=== PATIENT | female | born 2005 | race Caucasian/White ===

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

== ENCOUNTER → 2024-04-05 | Outpatient (CLI) | payer OTHER, SELFPAY ==
[2024-04-05 16:55] LABS: Absolute Lymphocyte Count 2.82 X10^3/uL (0.83-4.51); Absolute Neutrophil Count 4.4 X10^3/uL (2.0-7.7); Basophil# 0.04 X10^3/uL; Basophil% 0.5 % (0-1); Eosinophil# 0.07 X10^3/uL; Eosinophils% 0.9 % (0-5); Hematocrit 42.3 % (37-47); Hemoglobin 13.1 g/dL (12.0-15.0); Lymphocyte # 2.82 X10^3/ul (0.83-4.51); Lymphocyte % 35.8 % (19-41); Mean Corpuscular Hgb 24.5 pg (27.0-32.0); Mean Corpuscular Volume 79.2 fL (81-99); Mean Platelet Vol. 10.5 fl (6.2-12.0); Monocyte# 0.57 X10^3/uL; Monocyte% 7.2 % (0-10); NRBC Flagged by Analyzer 0 % (0-5); Neutrophil # 4.35 X10^3/uL (2.7-7.7); Neutrophil % 55.3 % (47-70); Platelet Count 324 K/mm3 (150-450); RBC Distribution Width CV 15.7 % (11.6-14.6); RBC Distribution Width SD 44.6 fl (35.1-43.9); Red Blood Count 5.34 M/mm3 (4.2-5.4); White Blood Count 7.9 K/mm3 (4.4-11.0)
[2024-04-05 17:06] LABS: Vitamin D,25 Hydroxy 12.6 ng/mL
[2024-04-05 17:09] LABS: Ferritin 13 ng/mL (8-252); Iron 33 ug/dL (50-170); Iron Binding Capacity,Total 426 ug/dL (250-450)
== END | disposition home or self-care (01) ==
LOC: BIMLAB 15:13
PROVIDERS: PCP Internal Medicine; Referring Provider Nurse Practitioner; Visit Provider Nurse Practitioner
DX: E55.9 Vitamin D deficiency, unspecified (principal); D50.9 Iron deficiency anemia, unspecified
CPT/HCPCS: 36415; 82306; 82728; 83540; 83550; 85025

== ENCOUNTER → 2024-11-19 | Outpatient (CLI) | payer OTHER, SELFPAY ==
[2024-11-19 15:40] LABS: Absolute Lymphocyte Count 2.59 X10^3/uL (0.83-4.51); Absolute Neutrophil Count 6.1 X10^3/uL (2.0-7.7); Basophil# 0.06 X10^3/uL; Basophil% 0.6 % (0-1); Eosinophil# 0.12 X10^3/uL; Eosinophils% 1.3 % (0-5); Hematocrit 43.2 % (37-47); Hemoglobin 13.6 g/dL (12.0-15.0); Lymphocyte # 2.59 X10^3/ul (0.83-4.51); Mean Corp Hgb Conc 31.5 g/dL (32-36); Mean Corpuscular Hgb 26.5 pg (27.0-32.0); Mean Platelet Vol. 11.1 fl (6.2-12.0); Monocyte# 0.65 X10^3/uL; Monocyte% 6.8 % (0-10); NRBC Flagged by Analyzer 0 % (0-5); Neutrophil # 6.14 X10^3/uL (2.7-7.7); Platelet Count 340 K/mm3 (150-450); RBC Distribution Width CV 13.4 % (11.6-14.6); Red Blood Count 5.14 M/mm3 (4.2-5.4); White Blood Count 9.6 K/mm3 (4.4-11.0)
[2024-11-19 21:45] LABS: AST(SGOT) 24 U/L (<=31); Alanine Aminotransfer ALT/SGPT 32 U/L (<=34); Albumin, Serum 3.7 g/dL (3.5-5.0); Alkaline Phosphatase 58 U/L (35-104); Anion Gap 11 (5-15); BUN 7 mg/dL (4-19); BUN/Creat Ratio 11.4 RATIO (10-20); Calcium 9.2 mg/dL (7.6-11.0); Carbon Dioxide 18.5 mmol/L (22.0-29.0); Chloride 108 mmol/L (96-108); Creatinine, Serum 0.59 mg/dL (0.70-1.20); EST Glomerular Filtration Rate 133 (>60); Globulin 3.8 g/dL (2.2-4.2); Glucose 84 mg/dL (70-99); Iron 24 ug/dL (50-170); Iron Binding Capacity,Total 407 ug/dL (250-450); Iron Binding Capacity,Unsat 383 ug/dL (228-428); Potassium 4.3 mmol/L (3.3-5.1); Protein, Total 7.5 g/dL (5.9-8.4); Sodium Level 138 mmol/L (133-145); Total Bilirubin 0.24 mg/dL (0.00-1.30); Vitamin D,25 Hydroxy 6.1 ng/mL (30-100)
== END | disposition home or self-care (01) ==
LOC: BIMLAB 11:08
PROVIDERS: PCP Internal Medicine; Visit Provider Internal Medicine
DX: E66.9 Obesity, unspecified (principal); E55.9 Vitamin D deficiency, unspecified; D50.9 Iron deficiency anemia, unspecified
CPT/HCPCS: 36415; 80053; 82306; 83540; 83550; 84443; 85025

== ENCOUNTER → 2025-03-29 | Outpatient (CLI) | payer OTHER, SELFPAY ==
--- OUTSIDE RECORDS SUMMARY | 2025-03-29 08:36 | XMS RPT_ITS | CCD ---
Author Organization [facility] Care Team Providers Care Marketing Strategy Analyst Name Role Phone Dr. Chen Mohan Primary Care Provider Dr. Chen Mohan Referring Provider [phone] KATIA Pena Attending Provider [phone] Chen Mohan Primary Care Unavailable Ingrid Pena Attending Unavailable Chen Mohan Referring Unavailable Chen Mohan Primary Care Unavailable Chen Mohan Attending Unavailable Chen Mohan Primary Care Unavailable Ingrid Pena Referring Unavailable Ingrid Pena Attending Unavailable Chen Mohan Primary Care Unavailable Chen Mohan Referring Unavailable Chen Mohan Attending Unavailable Dr. Chen Mohan MD Primary Care Provider [phone] Dr. Chen Mohan MD Attending Provider Marques RUANO, Dr. Siddiqui Referring Provider Allergies Allergy Classification Reported Allergen(s) Allergy Type Date of Onset Reaction(s) Facility (2 sources) Amoxicillin Drug Allergy 11-22-2023 [facility] (1 source) Amoxicillin Drug Allergy 11-19-2024 [facility] Repository Medications Current Medications Medication Drug Class(es) Dates Sig (Normalized) Sig (Original) cholecalciferol 1.25 mg oral capsule (1 source) Vitamin D Start: 11-19-2024 take 1 capsule by mouth every week Cholecalciferol (Vitamin D3) 1,250 mcg (50,000 unit) capsule Active 1250 ug PO EVERY WEEK November 19, 2024 1:00am L Norgest/E.Estradiol-E .Estrad (6 sources) Progestin, Estrogen, Progestin-contain ing Intrauterine Device Start: 09-14-2024 take 1 tablet by mouth once daily L Norgest/E.Estradiol- E.Estrad 0.15 mg-30 mcg (84)/10 mcg (7) tablets,dose pack,3 month Active 0 PO .COMPLEX September 14, 2024 1:02pm take 1 tablet daily following the order on blister card(s) PO Start: 06-22-2024 End: 09-14-2024 take 1 tablet by mouth once daily L Norgest/E.Estradiol-E.Estrad 0.15 mg-3 0 mcg (84)/10 mcg (7) tablets,dose pack,3 month Discontinued 0 PO .COMPLEX June 22, 2024 3:23pm September 14, 2024 1:03pm take 1 tablet daily following the order on blister card(s) PO Start: 11-22-2023 End: 06-22-2024 take 1 tablet by mouth once daily L Norgest/E.Estradiol-E.Estrad 0.15 mg-3 0 mcg (84)/10 mcg (7) tablets,dose pack,3 month Discontinued 0 PO .COMPLEX November 22, 2023 2:09pm June 22, 2024 3:23pm take 1 tablet daily following the order on blister card(s) PO Start: 11-22-2023 take 1 tablet by susannah th once daily L Norgest/E.Estradiol-E.Estrad Active 0 PO .COMPLEX November 22, 2023 1:09pm take 1 tablet daily following the order on blister card(s) PO Start: 05-02-2023 End: 11-22-2023 take 1 tablet by mouth once daily L Norgest/E.Estradiol-E.Estrad (Seasoniq ue) 0.15 mg-30 mcg (84)/10 mcg (7) tablets,dose pack,3 month Discontinued 0 PO .COMPLEX May 02, 2023 12:00am November 22, 2023 2:09pm take 1 tablet daily following the order on blister card(s) PO Start: 05-02-2023 End: 11-22-2023 take 1 tablet by mouth once daily L Norgest/E.Estradiol-E.Estrad (Seasoniq ue) 0.15 mg-30 mcg (84)/10 mcg (7) tablets,dose pack,3 month Discontinued 0 PO .COMPLEX 182 May 01, 2023 11:00pm November 22, 2023 1:09pm take 1 tablet daily following the order on blister card(s) PO ferrous sulfate 325 mg oral tablet (2 sources) Start: 11-24-2023 take 1 tablet by mouth every other day Ferrous Sulfate 325 mg (65 mg iron) tablet Active 325 mg PO every other day 60 November 24, 2023 1:00am naproxen 500 mg oral tablet (2 sources) Nonsteroidal Anti-inflammatory Drug Start: 04-19-2023 take 1 tablet by mouth twice daily as needed for pain Naproxen 500 mg tablet Active 500 mg PO TWICE A DAY as needed for pain April 19, 2023 12:00am Problems Problem Classification Problem Date Documented Da te Episodic/Chronic Administrative/social admission (2 sources) Patient encounter status; Translations: [Encounter for pre-employment examination] 04-18-2023 Episodic Deficiency and other anemia (3 sources) Iron deficiency anemia; Translations: [Iron deficiency anemia, unspecified] 11-22-2023 Episodic Deficiency and other anemia (2 sources) Iron deficiency anemia, unspecified; Translations: [Iron deficiency anemia, unspecified] Onset: 11-19-2024 11-22-2023 Episodic Headache; including migraine (3 sources) Migraine with aura, not intractable, without status migrainosus; Translations: [Migraine] Onset: 04-17-2024 04-05-2024 Chronic Headache; including migraine (3 sources) Intermittent headache; Translations: [Intermittent headache] 11-22-2023 Episodic Menstrual disorders (5 sources) Irregular periods; Translations: [Irregular menstruation, unspecified] Onset: 04-17-2024 11-22-2023 Chronic Nutritional deficiencies (5 sources) Vitamin D deficiency; Translations: [Vitamin D deficiency, unspecified] Onset: 11-19-2024 11-22-2023 Chronic Other non-traumatic joint disorders (1 source) Pain in right knee; Translations: [Bilateral knee pain] 11-19-2024 Episodic Other nutritional; endocrine; and metabolic disorders (1 source) Obesity, unspecified; Translations: [Obesity, unspecified] Onset: 11-29-2024 Chronic Other nutritional; endocrine; and metabolic disorders (2 sources) Body mass index 30+ - obesity; Translations: [Obesity, unspecified] 04-05-2024 Chronic Residual codes; unclassified (1 source) Influenza vaccination declined; Translations: [Immunization not carried out because of patient refusal] 11-19-2024 Episodic Results Test Name Value Interpretation Reference Range Facility Absolute neutrophil countOrd ered By: Chen Mohan on 11-19-2024 Neutrophils (Bld) [#/Vol] 6.1 10*3/uL 2.0-7.7 [facility] BUN/creatinine ratioOrdered By: Chen Mohan on 11-19-2024 Urea nitrogen/Creatinine [Mass ratio] 11.4 mg/mg 10-20 [facility] Basophil percentageOrdered B y: Chen Mohan on 11-19-2024 Basophils/100 WBC (Bld) 0.6 % 0-1 [facility] Bilirubin, totalOrdered By: Chen Mohan on 11-19-2024 Bilirubin [Mass/Vol] 0.24 mg/dL 0.00-1.30 [facility] CBC W/Diff, Automatedon Absolute Lymph 2.59 X10 3/uL Normal 0.83-4.51 [facility] Comment on above: Performed By: #### L 500.4050, L100.0100, L503.6030, L506.1001, L501.9520 #### [facility] [address] [place], [address] Absolute Neut 6.1 X10 3/uL Normal 2.0-7.7 [facility] Comment on above: Performed By: #### L 500.4050, L100.0100, L503.6030, L506.1001, L501.9520 #### [facility] [address] [place], [address] Basophils/100 WBC (Bld) 0.6 % Normal 0-1 [facility] Comment on above: Performed By: #### L 500.4050, L100.0100, L503.6030, L506.1001, [id number] #### [facility] [address] [place], [address] Eosinophils/100 WBC (Bld) 1.3 % Normal 0-5 [facility] Comment on above: Performed By: #### L 500.4050, L100.0100, L503.6030, L506.1001, [id number] #### [facility] [address] [place], [address] Erythrocyte distribution width (RBC) [Ratio] 13.4 % Normal 11.6-14.6 [facility] Comment on above: Performed By: #### L 500.4050, L100.0100, L503.6030, L506.1001, L501.9520 #### [facility] [address] [place], [address] Hematocrit (Bld) [Volume fraction] 43.2 % Normal 37-47 [facility] Comment on above: Performed By: #### L 500.4050, L100.0100, L503.6030, L506.1001, L501.9520 #### [facility] [address] [place], [address] Hemoglobin (Bld) [Mass/Vol] 13.6 g/dL Normal 12.0-15.0 [facility] Comment on above: Performed By: #### L 500.4050, L100.0100, L503.6030, L506.1001, L501.9520 #### [facility] [address] [place], [address] IG% 0.300 Normal 0.0-0.9 [facility] Comment on above: Result Comment: IG% - Immature Granulocytes (promyelocytes, myelocytes and metamyelocytes) > 1% indicates that a LEFT SHIFT is Present. Performed By: #### L 500.4050, L100.0100, L503.6030, L506.1001, L501.9520 #### [facility] [address] [place], [address] Lymphocytes/100 WBC (Bld) 27.0 % Normal 19-41 [facility] Comment on above: Performed By: #### L 500.4050, L100.0100, L503.6030, L506.1001, [id number] #### [facility] [address] [place], [address] MCH (RBC) [Entitic mass] 26.5 pg Low 27.0-32.0 [facility] Comment on above: Performed By: #### L 500.4050, L100.0100, L503.6030, L506.1001, L501.9520 #### [facility] [address] [place], [address] MCHC (RBC) [Mass/Vol] 31.5 g/dL Low 32-36 [facility] Comment on above: Performed By: #### L 500.4050, L100.0100, L503.6030, L506.1001, L501.9520 #### [facility] [address] [place], [address] MCV (RBC) [Entitic vol] 84.0 fL Normal 81-99 [facility] Comment on above: Performed By: #### L 500.4050, L100.0100, L503.6030, L506.1001, L501.9520 #### [facility] [address] [place], [address] Monocytes/100 WBC (Bld) 6.8 % Normal 0-10 [facility] Comment on above: Performed By: #### L 500.4050, L100.0100, L503.6030, L506.1001, L501.9520 #### [facility] [address] [place], [address] Neutrophils/100 WBC (Bld) 64.0 % Normal 47-70 [facility] Comment on above: Performed By: #### L 500.4050, L100.0100, L503.6030, L506.1001, L501.9520 #### [facility] [address] [place], [address] Nucleated RBC (Bld) [#/Vol] 0 10*3/uL Normal 0-5 [facility] Comment on above: Performed By: #### L 500.4050, L100.0100, L503.6030, L506.1001, L501.9520 #### [facility] [address] [place], [address] Platelet mean volume (Bld) [Entitic vol] 11.1 fL Normal 6.2-12.0 [facility] Comment on above: Performed By: #### L 500.4050, L100.0100, L503.6030, L506.1001, L501.9520 #### [facility] [address] [place], [address] Platelets (Bld) [#/Vol] 340 10*3/uL Normal 150-450 [facility] Comment on above: Performed By: #### L 500.4050, L100.0100, L503.6030, L506.1001, L501.9520 #### [facility] [address] [place], [address] RBC (Bld) [#/Vol] 5.14 10*6/uL Normal 4.2-5.4 [facility] Comment on above: Performed By: #### L 500.4050, L100.0100, L503.6030, L506.1001, L501.9520 #### [facility] [address] [place], [address] RDW SD 41.0 fl Normal 35.1-43.9 [facility] Comment on above: Performed By: #### L 500.4050, L100.0100, L503.6030, L506.1001, L501.9520 #### [facility] [address] [place], [address] WBC (Bld) [#/Vol] 9.6 10*3/uL Normal 4.4-11.0 [facility] Comment on above: Performed By: #### L 500.4050, L100.0100, L503.6030, L506.1001, L501.9520 #### [facility] [address] [place], [address] Calculated total iron bindin g capacityOrdered By: Chen Mohan on 11-19-2024 Total Iron Binding Capacity 407 ug/dL 250-450 [facility] Carbon dioxide measurementOr dered By: Chen Mohan on 11-19-2024 CO2 [Moles/Vol] 18.5 mmol/L Low 22.0-29.0 [facility] Chloride measurementOrdered By: Chen Mohan on 11-19-2024 Chloride [Moles/Vol] 108 mmol/L 96-108 [facility] Comprehensive Metabolic Prof ilon 11-19-2024 Albumin [Mass/Vol] 3.7 g/dL Normal 3.5-5.0 [facility] Comment on above: Performed By: #### L 500.4050, L100.0100, L503.6030, L506.1001, L501.9520 #### [facility] [address] [place], [address] Albumin/Globulin [Mass ratio] 1.0 {ratio} Normal 0.9-2.4 [facility] Comment on above: Performed By: #### L 500.4050, L100.0100, L503.6030, L506.1001, L501.9520 #### [facility] [address] [place], [address] ALK PHOS 58 U/L Normal 35-104 [facility] Comment on above: Performed By: #### L 500.4050, L100.0100, L503.6030, L506.1001, L501.9520 #### [facility] [address] [place], [address] ALT [Catalytic activity/Vol] 32 U/L Normal <=34 [facility] Comment on above: Performed By: #### L 500.4050, L100.0100, L503.6030, L506.1001, L501.9520 #### [facility] [address] [place], [address] Anion gap [Moles/Vol] 11 mmol/L Normal 5-15 [facility] Comment on above: Performed By: #### L 500.4050, L100.0100, L503.6030, L506.1001, L501.9520 #### [facility] [address] [place], [address] AST [Catalytic activity/Vol] 24 U/L Normal <=31 [facility] Comment on above: Performed By: #### L 500.4050, L100.0100, L503.6030, L506.1001, L501.9520 #### [facility] [address] [place] [place], [address] Bilirubin [Mass/Vol] 0.24 mg/dL Normal 0.00-1.30 [facility] Comment on above: Performed By: #### L 500.4050, L100.0100, L503.6030, L506.1001, L501.9520 #### [facility] [address] [place], [address] BUN/CRE 11.4 RATIO Normal 10-20 [facility] Comment on above: Performed By: #### L 500.4050, L100.0100, L503.6030, L506.1001, L501.9520 #### [facility] [address] [place], [address] Calcium [Mass/Vol] 9.2 mg/dL Normal 7.6-11.0 [facility] Comment on above: Performed By: #### L 500.4050, L100.0100, L503.6030, L506.1001, L501.9520 #### [facility] [address] [place], [address] Chloride [Moles/Vol] 108 mmol/L Normal 96-108 [facility] Comment on above: Performed By: #### L 500.4050, L100.0100, L503.6030, L506.1001, L501.9520 #### [facility] [address] [place], [address] CO2 [Moles/Vol] 18.5 mmol/L Low 22.0-29.0 [facility] Comment on above: Performed By: #### L 500.4050, L100.0100, L503.6030, L506.1001, L501.9520 #### [facility] [address] [place], [address] Creatinine [Mass/Vol] 0.59 mg/dL Low 0.70-1.20 [facility] Comment on above: Performed By: #### L 500.4050, L100.0100, L503.6030, L506.1001, L501.9520 #### [facility] [address] [place], [address] GFR/1.73 sq M.predicted among non-blacks MDRD (S/P/Bld) [Vol rate/Area] 133 mL/min/{1.73_m2} Normal >60 [facility] Comment on above: Result Comment: mL/m in/1.73m2 CKD-EPI Creatinine Equation (2020) Performed By: #### L 500.4050, L100.0100, L503.6030, L506.1001, L501.9520 #### [facility] [address] [place], [address] Globulin (S) [Mass/Vol] 3.8 g/dL Normal 2.2-4.2 [facility] Comment on above: Performed By: #### L 500.4050, L100.0100, L503.6030, L506.1001, L501.9520 #### [facility] [address] [place], [address] Glucose [Mass/Vol] 84 mg/dL Normal 70-99 [facility] Comment on above: Performed By: #### L 500.4050, L100.0100, L503.6030, L506.1001, L501.9520 #### [facility] [address] [place], [address] Potassium [Moles/Vol] 4.3 mmol/L Normal 3.3-5.1 [facility] Comment on above: Performed By: #### L 500.4050, L100.0100, L503.6030, L506.1001, L501.9520 #### [facility] [address] [place], [address] Sodium [Moles/Vol] 138 mmol/L Normal 133-145 [facility] Comment on above: Performed By: #### L 500.4050, L100.0100, L503.6030, L506.1001, L501.9520 #### [facility] [address] [place], [address] T PROT 7.5 g/dL Normal 5.9-8.4 [facility] Comment on above: Performed By: #### L 500.4050, L100.0100, L503.6030, L506.1001, L501.9520 #### [facility] [address] [place], [place], [address] Urea nitrogen [Mass/Vol] 7 mg/dL Normal 4-19 [facility] Comment on above: Performed By: #### L 500.4050, L100.0100, L503.6030, L506.1001, L501.9532 #### [facility] [address] [place], [address] Eosinophil percentageOrdered By: Chen Mohan on 11-19-2024 Eosinophils/100 WBC (Bld) 1.3 % 0-5 [facility] Erythrocyte distribution wid th ratioOrdered By: Chen Mohan on 11-19-2024 Erythrocyte distribution width (RBC) [Ratio] 13.4 % 11.6-14.6 [facility] Erythrocyte distribution wid th standard deviationOrdered By: Chen Mohan on 11-19-2024 Erythrocyte distribution width (RBC) [Entitic vol] 41.0 fL 35.1-43.9 [facility] GFR/1.73 sq M.predicted tobias g non-blacks MDRD (S/P/Bld) [Vol rate/Area]Ordered By: Chen Mohan on 11-19-2024 Estimated GFR (MDRD) Non-Af Amer 133 >60 [facility] Comment on above: mL/min/1.73m2 CKD-EP I Creatinine Equation (2020) Hematocrit Auto (Bld) [Volum e fraction]Ordered By: Chen Mohan on 11-19-2024 Hematocrit (Bld) [Volume fraction] 43.2 % 37-47 [facility] Hemoglobin measurementOrdere d By: Chen Mohan on 11-19-2024 Hemoglobin (Bld) [Mass/Vol] 13.6 g/dL 12.0-15.0 [facility] Immature granulocytes/100 WB C Auto (Bld)Ordered By: Chen Mohan on 11-19-2024 Immature granulocytes/100 WBC (Bld) 0.300 % 0.0-0.9 [facility] Comment on above: IG% - Immature Granu locytes (promyelocytes, myelocytes and metamyelocytes) > 1% indicates that a LEFT SHIFT is Present. Iron (Unsp spec) [Mass/Mass] Ordered By: Chen Mohan on 11-19-2024 Iron [Mass/Vol] 24 ug/dL Low 50-170 [facility] Iron saturation [Mass fracti on]Ordered By: Chen Crumlay on 11-19-2024 Iron Saturation 6.0 % Low 15.0-55.0 [facility] Iron+Iron Binding Capacityon 11-19-2024 Iron [Mass/Vol] 24 ug/dL Low 50-170 [facility] Comment on above: Performed By: #### L 100.0100, L503.6150, L503.6075, L506.1000, L503.6550 #### [facility] [address] [place] [place], [address] IRON SATURATION 6.0 Low 15.0-55.0 [facility] Comment on above: Performed By: #### L 100.0100, L503.6150, L503.6075, L506.1000, L503.6550 #### [facility] [address] [place] [place], [address] TIBC 407 ug/dL Normal 250-450 [facility] Comment on above: Performed By: #### L 100.0100, L503.6150, L503.6075, L506.1000, L503.6550 #### [facility] [address] [place] [place], [address] UIBC 383 ug/dL Normal 228-428 [facility] Comment on above: Performed By: #### L 100.0100, L503.6150, L503.6075, L506.1000, L503.6550 #### [facility] [address] [place] [place], [address] L506.1001on 11-19-2024 Vitamin D 25-OH 6.1 ng/mL Low 30-100 [facility] Comment on above: Result Comment: Mai min D Status Deficiency: <20 ng/mL (50nmol/L) Insufficiency: 20-30 ng/mL (50-75 nmol/L) Sufficiency: 30-100 ng/mL (75-250 nmol/L) Toxicity: >100 ng/mL (>250 nmol/L) Performed By: #### L 100.0100, L503.6150, L503.6075, L506.1000, L503.6550 #### [facility] [address] [place], [address] Laboratory - Chemistry and C hemistry - challengeOrdered By: Chen Mohan on 11-19-2024 AST [Catalytic activity/Vol] 24 U/L <32 [facility] Lymphocytes Auto (Unsp spec) [#/Vol]Ordered By: Chen Mohan on 11-19-2024 Lymphocytes (Bld) [#/Vol] 2.59 10*3/uL 0.83-4.51 [facility] Lymphocytes/100 WBC Auto (Un sp spec)Ordered By: Chen Mohan on 11-19-2024 Lymphocytes/100 WBC (Bld) 27.0 % 19-41 [facility] MCV (mean corpuscular volume ) determinationOrdered By: Chen Mohan on 11-19-2024 MCV (RBC) [Entitic vol] 84.0 fL 81-99 [facility] Mean corpuscular hemoglobin (MCH) determinationOrdered By: Chen Mohan on 11-19-2024 MCH (RBC) [Entitic mass] 26.5 pg Low 27.0-32.0 [facility] Mean corpuscular hemoglobin concentration (MCHC) determinationOrdered By: Chen Mohan on 11-19-2024 MCHC (RBC) [Mass/Vol] 31.5 g/dL Low 32-36 [facility] Mean platelet volume determi nationOrdered By: Chen Mohan on 11-19-2024 Platelet mean volume (Bld) [Entitic vol] 11.1 fL 6.2-12.0 [facility] Monocyte percentageOrdered B y: Chen Mohan on 11-19-2024 Monocytes/100 WBC (Bld) 6.8 % 0-10 [facility] Neutrophil percentageOrdered By: Chen Mohan on 11-19-2024 Neutrophils/100 WBC (Bld) 64.0 % 47-70 [facility] No Panel InformationOrdered By: Chen Mohan on 11-19-2024 Unsaturated Iron Binding Capacity 383 ug/dL 228-428 [facility] Nucleated red blood cell per centageOrdered By: Chen Mohan on 11-19-2024 Nucleated RBC/100 WBC (Bld) [Ratio] 0 % 0-5 [facility] Platelet countOrdered By: Pete Mohan on 11-19-2024 Platelets (Bld) [#/Vol] 340 10*3/uL 150-450 [facility] RBC Auto (Bld) [#/Vol]Ordere d By: Chen Mohan on 11-19-2024 RBC (Bld) [#/Vol] 5.14 10*6/uL 4.2-5.4 [facility] Serum creatinine measurement (mass/volume)Ordered By: Chen Mohan on 11-19-2024 Creatinine [Mass/Vol] 0.59 mg/dL Low 0.70-1.20 [facility] Serum globulin measurementOr dered By: Chen Mohan on 11-19-2024 Globulin (S) [Mass/Vol] 3.8 g/dL 2.2-4.2 [facility] Serum glucose measurement (m ass/volume)Ordered By: Chen Mohan on 11-19-2024 Glucose [Mass/Vol] 84 mg/dL 70-99 [facility] Serum or plasma alanine bell otransferase (ALT) measurementOrdered By: Chen oMhan on 11-19-2024 ALT [Catalytic activity/Vol] 32 U/L <35 [facility] Serum or plasma albumin julian urement (mass/volume)Ordered By: Chen Mohan on 11-19-2024 Albumin [Mass/Vol] 3.7 g/dL 3.5-5.0 [facility] Serum or plasma albumin/glob ulin mass ratioOrdered By: Chne Mohan on 11-19-2024 Albumin/Globulin [Mass ratio] 1.0 {ratio} 0.9-2.4 [facility] Serum or plasma alkaline delmy sphatase measurementOrdered By: Chen Mohan on 11-19-2024 ALP [Catalytic activity/Vol] 58 U/L 35-104 [facility] Serum or plasma anion gap de termination (moles/volume)Ordered By: Chen Mohan on 11-19-2024 Anion gap [Moles/Vol] 11 mmol/L 5-15 [facility] Serum or plasma calcium julian urement (mass/volume)Ordered By: Chen Mohan on 11-19-2024 Calcium [Mass/Vol] 9.2 mg/dL 7.6-11.0 [facility] Serum or plasma potassium me asurementOrdered By: Chen Mohan on 11-19-2024 Potassium [Moles/Vol] 4.3 mmol/L 3.3-5.1 [facility] Serum or plasma sodium measu rement (moles/volume)Ordered By: Chen Mohan on 11-19-2024 Sodium [Moles/Vol] 138 mmol/L 133-145 [facility] Serum or plasma urea nitroge n measurement (mass/volume)Ordered By: Chen Mohan on 11-19-2024 Urea nitrogen [Mass/Vol] 7 mg/dL 4-19 [facility] TSH DL <= 0.005 mIU/L QnOrde red By: Chen Mohan on 11-19-2024 Thyroid Stimulating Hormone (TSH) 1.660 uIU/mL 0.500-4.300 [facility] Thyroid Stim Hormone (TSH)on 11-19-2024 TSH 1.660 uIU/mL Normal 0.500-4.300 [facility] Comment on above: Performed By: #### L 500.4050, L100.0100, L503.6030, L506.1001, L501.9520 #### [facility] [address] [place], [place], [id number] Total proteinOrdered By: Viraj Mohan on 11-19-2024 Protein [Mass/Vol] 7.5 g/dL 5.9-8.4 [facility] Vitamin D, 25-hydroxyOrdered By: Chen Mohan on 11-19-2024 Vitamin D 25-Hydroxy 6.1 ng/mL Low 30-100 [facility] Comment on above: Vitamin D StatusDefi ciency: <20 ng/mL (50nmol/L)Insufficiency: 20-30 ng/mL (50-75 nmol/L)Sufficiency: 30-100 ng/mL (75-250 nmol/L)Toxicity: >100 ng/mL (>250 nmol/L) White blood cell (WBC) count Ordered By: Chen Mohan on 11-19-2024 WBC (Bld) [#/Vol] 9.6 10*3/uL 4.4-11.0 [facility] Internal Medicine Office Vis iton 11-15-2024 Internal Medicine Office Visit [facility] [place] [address] [place] [address] OFFICE VISIT Date of Service: 11/19/24 MR#: [id number] Acct: [id number] Name: ARIANNE MEDINA Rep #: [id number] : 2005 Provider: Dr. Chen dang MD Age/Sex: 18/F [place] [facility] Status: Signed Intake Vital Signs 04/05/24 14:34 11/19/24 10:33 Height 5 ft 8 in 5 ft 8 in Weight: 253 lb 6 oz BMI 38.5 BP 132/86 H Blood Pressure Location Rt brachial Position Sitting Respiration 14 Pulse 92 Pulse Source Monitor Temp 97.2 F L Temp Source Temporal Pulse Oximetry (%) 99 Oxygen Delivery Method room air Intake Visit Reasons: MED FU Chief Complaint: Follow up Family Physician Required: No Accompanied by: Self Is patient in pain?: Yes (hillary knee pain ) Allergies amoxicillin Allergy (Mild, Verified 11/19/24 10:31) Hives Medications ???Medication ???Instructions ???Recorded ???Confirmed ???Type naproxen 500 mg tablet 500 mg PO BID PRN pain #30 tabs 11/19/24 Rx ferrous sulfate 325 mg (65 mg 325 mg PO Q OTHER DAY #60 tabs 03/ 07/24 03/03/25 Rx iron) tablet L norgest/E estradiol-E estrad See Rx Instructions PO .COMPLEX 11/19/24 Rx 0.15 mg-30 mcg (84)/10 mcg(7) #30 tabs tabs,3mos Have you fallen in the past year?: No Nurse's Note: hillary knee pain more on left knee then the right PFSH Medical History Low iron History of cardiac murmur Hearing problem Headache, migraine Surgical History No pertinent past surgical history Family History Father Cancer multiple myeloma Diabetes Hypertension Uncle Cancer colon Grandmother Diabetes Hypertension Other Autoimmune disease Social History (Updated 11/19/24 @ 10:[address] 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 She is due for some follow up blood work today. She isn't due for any screening. She doesn't want a flu shot. She doesn't smoke and doesn't need refills. She reports she is trying to eat healthy and continues to stay active. She reports her headaches/migraines have been doing better. She doesn't take or do anything for them. She can't remember when she last had a headache. She reports her menstrual periods have been regular. She is taking the OCP as prescribed without problems. She is not sexually active at this time. She takes iron every other day and also takes a vitamin D supplement. She denies any problems with constipation from the iron. The patient has concerns about knee pain. She reports it occasionally involves both knees, but is primarily in the left. She reports it started about 4-5 months ago. She denies any falls or injuries. She reports it is mostly with sitting for a while or walking. She reports it is mostly in the back of the knee. She describes it as a tight sensation. She states it doesn't feel like she can stretch her knee out completely. She hasn't noticed any swelling or redness. She reports she has a topical NSAID that she tried which helps. She reports her pain is intermittent. She denies any pain currently. She reports her pain isn't getting worse, it just isn't getting better. She denies any associated weakness and reports her knee hasn't given out on her. She reports she does get some numbness in that leg, but that improves with position changes. She has no other questions or concerns at this time. ROS Const Constitutional: Positive for weight change (15 pound weight gain); No body ache, excessive sweating, fatigue, fever(s), frequent falls, headache(s), snoring, weakness, sleep problems or change in appetite Eyes Eyes: Positive for change in vision (has upcoming eye appointment); No blurry vision, eye pain or Light sensitivity ENT ENT: No abnormal hearing, ear or mastoid pain, tinnitus, nasal congestion, headache(s), neck pain or sore throat Resp Respiratory: No cough, shortness of breath, snoring or wheezing Cardio Cardiology: Positive for palpitations (occasional); No chest pain at rest, chest pain with exertion, excessive sweating, shortness of breath, dyspnea on exertion, lightheadedness, orthopnea or other (no leg swelling) Gastro GI: No abdominal pain, change in bowel habits, cons (more content not included)... Normal [facility] CBC W/Diff, Automatedon 03-19 Absolute Lymph 2.82 X10 3/uL Normal 0.83-4.51 [facility] Comment on above: Performed By: #### L 100.0100, L503.6150, L503.6075, L506.1000, L503.6550 #### [facility] [address] [place], [address] Absolute Neut 4.4 X10 3/uL Normal 2.0-7.7 [facility] Comment on above: Performed By: #### L 100.0100, L503.6150, L503.6075, L506.1000, L503.6550 #### [facility] [address] [place], [address] Basophils/100 WBC (Bld) 0.5 % Normal 0-1 [facility] Comment on above: Performed By: #### L 100.0100, L503.6150, L503.6075, L506.1000, L503.6550 #### [facility] [address] [place], [address] Eosinophils/100 WBC (Bld) 0.9 % Normal 0-5 [facility] Comment on above: Performed By: #### L 100.0100, L503.6150, L503.6075, L506.1000, L503.6550 #### [facility] [address] [place], [address] Erythrocyte distribution width (RBC) [Ratio] 15.7 % High 11.6-14.6 [facility] Comment on above: Performed By: #### L 100.0100, L503.6150, L503.6075, L506.1000, L503.6550 #### [facility] [address] [place], [address] Hematocrit (Bld) [Volume fraction] 42.3 % Normal 37-47 [facility] Comment on above: Performed By: #### L 100.0100, L503.6150, L503.6075, L506.1000, L503.6550 #### [facility] [address] [place], [address] Hemoglobin (Bld) [Mass/Vol] 13.1 g/dL Normal 12.0-15.0 [facility] Comment on above: Performed By: #### L 100.0100, L503.6150, L503.6075, L506.1000, L503.6550 #### [facility] [address] [place], [address] IG% 0.300 Normal 0.0-0.9 [facility] Comment on above: Result Comment: IG% - Immature Granulocytes (promyelocytes, myelocytes and metamyelocytes) > 1% indicates that a LEFT SHIFT is Present. Performed By: #### L 100.0100, L503.6150, L503.6075, L506.1000, L503.6550 #### [facility] [address], [address] Lymphocytes/100 WBC (Bld) 35.8 % Normal 19-41 [facility] Comment on above: Performed By: #### L 100.0100, L503.6150, L503.6075, L506.1000, L503.6550 #### [facility] [address] [place], [address] MCH (RBC) [Entitic mass] 24.5 pg Low 27.0-32.0 [facility] Comment on above: Performed By: #### L 100.0100, L503.6150, L503.6075, L506.1000, L503.6550 #### [facility] [address] [place], [address] MCHC (RBC) [Mass/Vol] 31.0 g/dL Low 32-36 [facility] Comment on above: Performed By: #### L 100.0100, L503.6150, L503.6075, L506.1000, L503.6550 #### [facility] [address], [address] MCV (RBC) [Entitic vol] 79.2 fL Low 81-99 [facility] Comment on above: Performed By: #### L 100.0100, L503.6150, L503.6075, L506.1000, L503.6550 #### [facility] [address], [address] Monocytes/100 WBC (Bld) 7.2 % Normal 0-10 [facility] Comment on above: Performed By: #### L 100.0100, L503.6150, L503.6075, L506.1000, L503.6550 #### [facility] [address] [place], [address] Neutrophils/100 WBC (Bld) 55.3 % Normal 47-70 [facility] Comment on above: Performed By: #### L 100.0100, L503.6150, L503.6075, L506.1000, L503.6550 #### [facility] [address] [place], [address] Nucleated RBC (Bld) [#/Vol] 0 10*3/uL Normal 0-5 [facility] Comment on above: Performed By: #### L 100.0100, L503.6150, L503.6075, L506.1000, L503.6550 #### [facility] [address] [place], [address] Platelet mean volume (Bld) [Entitic vol] 10.5 fL Normal 6.2-12.0 [facility] Comment on above: Performed By: #### L 100.0100, L503.6150, L503.6075, L506.1000, L503.6550 #### [facility] [address] [place], [address] Platelets (Bld) [#/Vol] 324 10*3/uL Normal 150-450 [facility] Comment on above: Performed By: #### L 100.0100, L503.6150, L503.6075, L506.1000, L503.6550 #### [facility] [address] [place], [address] RBC (Bld) [#/Vol] 5.34 10*6/uL Normal 4.2-5.4 [facility] Comment on above: Performed By: #### L 100.0100, L503.6150, L503.6075, L506.1000, L503.6550 #### [facility] [address] [place], [address] RDW SD 44.6 fl High 35.1-43.9 [facility] Comment on above: Performed By: #### L 100.0100, L503.6150, L503.6075, L506.1000, L503.6550 #### [facility] [address] [place], [address] WBC (Bld) [#/Vol] 7.9 10*3/uL Normal 4.4-11.0 [facility] Comment on above: Performed By: #### L 100.0100, L503.6150, L503.6075, L506.1000, L503.6550 #### [facility] [address] [place], [address] Ferritinon 04-05-2024 Ferritin [Mass/Vol] 13 ng/mL Normal 8-252 [facility] Comment on above: Performed By: #### L 100.0100, L503.6150, L503.6075, L506.1000, L503.6550 #### [facility] [address] [place], [address] Internal Medicine Office Vis iton 04-05-2024 Internal Medicine Office Visit [facility] [address] [place] [address] [place] [address] OFFICE VISIT Date of Service: 04/05/24 MR#: [id number] Acct: [id number] Name: ARIANNE MEDINAJUSTIN Rep #: [id number] : 2005 Provider: KATIA wray Age/Sex: 18/F [place] [facility] Status: Signed Intake Vital Signs 11/22/23 12:50 04/05/24 14:34 Height 5 ft 8 in 5 ft 8 in Weight: 222 lb 238 lb BMI 33.7 36.1 BP 128/76 130/76 H Blood Pressure Location Lt brachial Lt brachial Position Sitting Sitting Respiration 16 18 Pulse 97 94 Pulse Source Monitor Monitor Temp 97.6 F L 97.6 F L Temp Source Temporal Temporal Pulse Oximetry (%) 99 98 Oxygen Delivery Method room air room air Intake Visit Reasons: FOLLOW UP Chief Complaint: Follow up Is patient in pain?: No Allergies amoxicillin Allergy (Mild, Verified 04/05/24 14:35) Hives Medications ???Medication ???Instructions ???Recorded ???Confirmed ???Type naproxen 500 mg tablet 500 mg PO BID PRN pain #30 tabs 04/19/23 04/05/24 Rx L norgest/E estradiol-E estrad See Rx Instructions PO .COMPLEX 11/22/23 04/05/24 Rx 0.15 mg-30 mcg (84)/10 mcg(7) #182 tabs tabs,3mos ferrous sulfate 325 mg (65 mg 325 mg PO Q OTHER DAY #60 tabs 11/24/23 04/05/24 Rx iron) tablet Nurse's Note: pt states that she would like to know if she should continue iron supplement pt is concerned with recent increase in migraines 2x/month [facility] Medical History (Updated 04/05/24 @ 20:53 by KATIA Mendoza) Low iron History of cardiac murmur Hearing problem Headache, migraine Surgical History No pertinent past surgical history Family History Father Cancer multiple myeloma Diabetes Hypertension Uncle Cancer colon Grandmother Diabetes Hypertension Other Autoimmune disease Social History household members: family current occupational status: employed and student 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 She reports 3-4 headaches in the past month that appear to be slightly more intense than previous and reports associated N and photophobia as noted below. Number of attacks in a lifetime (at least 5): 5 Headache duration (lasts 4-72 hours): >4 hours <24 hours At least 2/4 features of unilateral location, pulsating/throbbing quality, moderate-severe intensity, aggravation by/causing avoidance of routine physical activity: Usually right sided, pulsating, moderate severity At least one of the following- N, V, photophobia and phonophobia: reports associated photophobia and nausea Current Treatments: ibuprofen takes the edge off and dulls pain but not completely relieving and does not relieve nausea or photophobia Aura: Reports visual squiggles to peripheral vision of right eye Eye exam has been completed within the past year She denies dizziness, vision changes, gait instability, motor weakness, paresthesias, syncope. She additionally inquires on stopping iron supplementation of ANA. She reports menses has lightheaded since beginning OCPs. She previously used a regular pad 6-8x/day and this has decreased to 4. She denies chest pain, tachycardia, palpitations, GI bleeding, dyspnea, or fatigue. She also reports menses is now regulated with OCPS. She has noted a change in her sleep cycle in the past 2 months. She use to use melatonin nightly as a sleep aid, but since returning home for summer she has had difficulty falling asleep due to not being tired. She has tried OTC z-quil with relief. She denies anxiety or depression sx. ROS Const Constitutional: No body ache, chills, excessive sweating, fatigue, fever(s), frequent falls, headache(s), snoring, weight change, sleep problems, abnormal sleep pattern or change in appetite Eyes Eyes: No blurry vision, change in vision, eye pain or Light sensitivity ENT ENT: No abnormal hearing, ear or mastoid pain, tinnitus, nasal congestion, headache(s), neck pain or sore throat Resp Respiratory: No cough, shortness of breath, snoring or wheezing Cardio Cardiology: No chest pain at rest, chest pain with exertion, excessive sweating, shortness of breath, dyspnea on exertion, lightheadedness, orthopnea or palpitations Gastro GI: No abdominal pain, change in bowel habits, constipation, cramping, diarrhea, nausea/dyspepsia or vomiting Genitourinary-Femal (more content not included)... Normal [facility] Ironon 04-05-2024 Iron [Mass/Vol] 33 ug/dL Low 50-170 [facility] Comment on above: Performed By: #### L 100.0100, L503.6150, L503.6075, L506.1000, L503.6550 #### [facility] [address] [place] [place], [address] Iron Binding Capacity,Totalo n 04-05-2024 TIBC 426 ug/dL Normal 250-450 [facility] Comment on above: Performed By: #### L 100.0100, L503.6150, L503.6075, L506.1000, L503.6550 #### [facility] [address] [place], [address] Vitamin D,25 Hydroxyon 04-05 Vitamin D 25-OH 12.6 ng/mL Normal [facility] Comment on above: Result Comment: Mai min D 25(OH) Status Range Deficiency <20 ng/mL (50nmol/L) Insufficiency 20 - 30 ng/mL (50 - 75 nmol/L) Sufficiency 30 - 100 ng/mL (75 - 250 nmol/L) Toxicity >100 ng/mL (>250 nmol/L) Performed By: #### L 100.0100, L503.6150, L503.6075, L506.1000, L503.6550 #### [facility] [address] [place], [address] Absolute lymphocyte countOrd ered By: Ingrid Pena on 11-22-2023 Lymphocytes Auto (Unsp spec) [#/Vol] 2.60 10*3/uL 0.83-4.51 [facility] Automated lymphocyte count a s percentage of total leukocytesOrdered By: Ingrid Pena on 11-22-2023 Lymphocytes/100 WBC Auto (Unsp spec) 38.1 % 25-45 [facility] Basophil percentageOrdered B y: Ingrid Pena on 11-22-2023 Basophils/100 WBC (Bld) 0.9 % 0-1 [facility] Eosinophils/100 WBC (Bld) 1.2 % 0-3 [facility] Hemoglobin (Bld) [Mass/Vol] 10.4 g/dL 12.0-15.0 [facility] Monocytes/100 WBC (Bld) 8.9 % 3-6 [facility] Neutrophils (Bld) [#/Vol] 3.5 10*3/uL 2.0-7.7 [facility] Neutrophils/100 WBC (Bld) 50.8 % 34-64 [facility] WBC (Bld) [#/Vol] 6.8 10*3/uL 4.5-13.0 [facility] Determination of erythrocyte mean corpuscular volume (MCV)Ordered By: Ingrid Pena on 11-22-2023 MCV (RBC) [Entitic vol] 72.5 fL 78-96 [facility] Erythrocyte distribution wid th ratioOrdered By: Ingrid Pena on 11-22-2023 Erythrocyte distribution width (RBC) [Ratio] 16.9 % 11.6-14.6 [facility] Erythrocyte distribution wid th standard deviationOrdered By: Ingrid Pena on 11-22-2023 Erythrocyte distribution width (RBC) [Entitic vol] 44.1 fL 35.1-43.9 [facility] Hematocrit Auto (Bld) [Volum e fraction]Ordered By: Ingrid Pena on 11-22-2023 Hematocrit (Bld) [Volume fraction] 36.4 % 37-46 [facility] Immature granulocytes/100 WB C Auto (Bld)Ordered By: Ingrid Pena on 11-22-2023 Immature granulocytes/100 WBC (Bld) 0.100 % 0.0-0.9 [facility] Comment on above: IG% - Immature Granu locytes (promyelocytes, myelocytes and metamyelocytes) > 1% indicates that a LEFT SHIFT is Present. Iron measurement (mass/mass) Ordered By: Ingrid Pena on 11-22-2023 Iron (Unsp spec) [Mass/Mass] 16 ug/dL 50-170 [facility] - Chemistry and C hemistry - challengeOrdered By: Ingrid Pena on 11-22-2023 Ferritin [Mass/Vol] 2 ng/mL 8-252 [facility] - Hematology and Cell countsOrdered By: Ingrid Pena on 11-22-2023 MCH (RBC) [Entitic mass] 20.7 pg 25.0-35.0 [facility] MCHC (RBC) [Mass/Vol] 28.6 g/dL 32-36 [facility] Nucleated RBC/100 WBC (Bld) [Ratio] 0 % 0-5 [facility] Platelet mean volume (Bld) [Entitic vol] 10.5 fL 6.2-12.0 [facility] Platelets (Bld) [#/Vol] 456 10*3/uL 150-450 [facility] No Panel InformationOrdered By: Ingrid Pena on 11-22-2023 Total Iron Binding Capacity 481 ug/dL 250-450 [facility] RBC Auto (Bld) [#/Vol]Ordere d By: Ingrid Pena on 11-22-2023 RBC (Bld) [#/Vol] 5.02 10*6/uL 4.1-4.8 [facility] CNCOon 12-16-2017 CNCO Letter [facility], [address] [address]Modue: [phone]: [phone] 2017RE: [facility]2006Dear Parent/Guardian of Arianne,We have tried to contact you in regards to your child'Basilio for Routine PhysicalOur efforts to reach you have been unsuccessful. Please call [phone] to coordinate your child's plan of care. Thank you and we lookforward to talking with you.Sincerely,[facility] Vital Signs Date Time Vital Sign Value Performing Clinician Nenita santillan 11-19-2024 10:33-0500 Body height 172.[address] Chen Mohan MD Work Phone: [facility] 11-19-2024 10:33-0500 Body mass index (BMI) [Percentile] Per age and sex 98.1 % Dr. Chen Mohan MD Work Phone: [facility] 11-19-2024 10:33-0500 Body mass index (BMI) [Ratio] 38.5 kg/m2 Dr. Chen Mohan MD Work Phone: [facility] 11-19-2024 10:33-0500 Body temperature 97.2 [degF] Dr. Chen Mohan MD Work Phone: [facility] 11-19-2024 10:33-0500 Body weight 114.[address] Chen Mohan MD Work Phone: [facility] 11-19-2024 10:33-0500 Diastolic blood pressure 86 mm[Hg] Dr. Chen Mohan MD Work Phone: [facility] 11-19-2024 10:33-0500 Heart rate 92 /min Dr. Chen Mohan MD Work Phone: [facility] 11-19-2024 10:33-0500 Respiratory rate 14 /min Dr. Chen Mohan MD Work Phone: [facility] 11-19-2024 10:33-0500 SaO2% (BldA) [Mass fraction] 99 % Dr. Chen Mohan MD Work Phone: [facility] 11-19-2024 10:33-0500 Systolic blood pressure 132 mm[Hg] Dr. Chen Mohan MD Work Phone: [facility] 11-22-2023 12:50-0500 Body height 172.[address] Chen Mohan Work Phone: [facility] 11-22-2023 12:50-0500 Body mass index (BMI) [Percentile] Per age and sex 96.9 % Dr. Chen Mohan Work Phone: [facility] 11-22-2023 12:50-0500 Body mass index (BMI) [Ratio] 33.7 kg/m2 Dr. Chen Mohan Work Phone: [facility] 11-22-2023 12:50-0500 Body temperature 97.6 [degF] Dr. Chen Mohan Work Phone: [facility] 11-22-2023 12:50-0500 Body weight 100.[address] Chen Mohan Work Phone: [facility] 11-22-2023 12:50-0500 Diastolic blood pressure 76 mm[Hg] Dr. Chen Mohan Work Phone: [facility] 11-22-2023 12:50-0500 Heart rate 97 /min Dr. Chen Mohan Work Phone: [facility] 11-22-2023 12:50-0500 Respiratory rate 16 /min Dr. Chen Mohan Work Phone: [facility] 11-22-2023 12:50-0500 SaO2% (BldA) [Mass fraction] 99 % Dr. Chen Mohan Work Phone: [facility] 11-22-2023 12:50-0500 Systolic blood pressure 128 mm[Hg] Dr. Chen Mohan Work Phone: [facility] Encounters Encounter Date Encounter Type Care Provider Facility Start: 11-19-2024 End: 11-19-[address] Chen Mohan MD -[facility] Work Phone: Start: 11-19-2024 End: 11-19-2024 ambulatory Chen Mohan Facility:[facility] Start: 11-19-2024 End: 11-19-2024 ambulatory Chen Mohan Facility:[facility] Start: 04-05-2024 End: 04-05-2024 ambulatory Chen Mohan Facility:[facility] Start: 04-05-2024 End: 04-05-2024 ambulatory Chen Mohan Facility:[facility] Start: 11-22-2023 End: 11-22-[address] Chen Mohan Work Phone: [facility] Work Phone: Start: 11-22-2023 End: 11-22-[address] Chen Mohan Work Phone: [facility] Work Phone: Plan of Treatment Date Care Activity Detail Author Vitamin D, 25-hydroxy measurement [facility] Immunizations Immunization Date Immunization Notes Care Provider [facility] 06-17-2022 meningococcal polysaccharide (groups A, C, Y and W-135) diphtheria toxoid conjugate vaccine (MCV4P) Dr. Chen Mohan Work Phone: [facility] 02-06-2021 Covid (Pfizer) Dr. Chen guidry Work Phone: [facility] 01-16-2021 Covid (Pfizer) Dr. Chen guidry Work Phone: [facility] 07-25-2017 influenza, injectabl e, quadrivalent, preservative free Dr. Chen Mohan Work Phone: [facility] 04-06-2017 meningococcal polysaccharide (groups A, C, Y and W-135) diphtheria toxoid conjugate vaccine (MCV4P) Dr. Chen Mohan Work Phone: [facility] 04-06-2017 tetanus toxoid, redu hasmukh diphtheria toxoid, and acellular pertussis vaccine, adsorbed Dr. Chen Mohan Work Phone: [facility] 12-25-2009 diphtheria, tetanus toxoids and acellular pertussis vaccine Dr. Chen Mohan Work Phone: [facility] 12-25-2009 measles, mumps and rubella virus vaccine Dr. Chen Mohan Work Phone: [facility] 12-25-2009 poliovirus vaccine, inactivated Dr[facility] [facility] 12-25-[address] Chen Mohan Work Phone: [facility] 07-25-2009 influenza, injectabl e, quadrivalent, preservative free Dr. Chen Mohan Work Phone: [facility] 07-03-2008 influenza virus vacc ine, live, attenuated, for intranasal use Dr. Chen Mohan Work Phone: [facility] 07-26-2007 influenza, injectabl e, quadrivalent, preservative free Dr. Chen Mohan Work Phone: [facility] 07-23-2006 influenza, injectabl e, quadrivalent, preservative free Dr. Chen Mohan Work Phone: [facility] 07-23-2006 poliovirus vaccine, inactivated Dr. Chen Mohan Work Phone: [facility] 03-30-2006 diphtheria, tetanus toxoids and acellular pertussis vaccine Dr. Chen Mohan Work Phone: [facility] 03-30-2006 haemophilus influenz ae type b vaccine, PRP-T conjugate Dr. Chen Mohan Work Phone: [facility] 01-05-2006 measles, mumps and rubella virus vaccine Dr. Chen Mohan Work Phone: [facility] 01-05-2006 pneumococcal conjuga te vaccine, [address] Chen Mohan Work Phone: [facility] 01-05-[address] Chen Mohan Work Phone: [facility] 07-08-2005 diphtheria, tetanus toxoids and acellular pertussis vaccine Dr. Chen Mohan Work Phone: [facility] 07-08-2005 haemophilus influenz ae type b vaccine, PRP-T conjugate Dr. Chen Mohan Work Phone: [facility] 07-08-2005 hepatitis B vaccine, pediatric or pediatric/adolescent dosage Dr. Chen Mohan Work Phone: [facility] 07-08-2005 influenza, injectabl e, quadrivalent, preservative free Dr. Chen Mohan Work Phone: [facility] 07-08-2005 pneumococcal conjuga te vaccine, [address] Chen Mohan Work Phone: [facility] 07-08-[address] Chen Mohan Work Phone: [facility] 05-18-2005 diphtheria, tetanus toxoids and acellular pertussis vaccine Dr. Chen Mohan Work Phone: [facility] 05-18-2005 haemophilus influenz ae type b vaccine, PRP-T conjugate Dr. Chen Mohan Work Phone: [facility] 05-18-2005 hepatitis B vaccine, pediatric or pediatric/adolescent dosage Dr. Chen Mohan Work Phone: [facility] 05-18-2005 pneumococcal conjuga te vaccine, [address] Chen Mohan Work Phone: [facility] 05-18-2005 poliovirus vaccine, inactivated Dr. Chen Mohan Work Phone: [facility] 02-26-2005 diphtheria, tetanus toxoids and acellular pertussis vaccine Dr. Chen Mohan Work Phone: [facility] 02-26-2005 haemophilus influenz ae type b vaccine, PRP-T conjugate Dr. Chen Mohan Work Phone: [facility] 02-26-2005 hepatitis B vaccine, pediatric or pediatric/adolescent dosage Dr. Chen Mohan Work Phone: [facility] 02-26-2005 pneumococcal conjuga te vaccine, [address] Chen Mohan Work Phone: [facility] 02-26-[address], [address] Chen Mohan Work Phone: [facility] 2004 hepatitis B vaccine, pediatric or pediatric/adolescent dosage Dr. Chen Mohan Work Phone: [facility] Payers Date Payer Category Payer Self-pay [id number] 2024 Unknown [id number] 2024 Unknown [id number] [id number] Unknown [id number] Unknown [id number] Unknown [id number] Social History Date Type Detail Facility [facility]: [facility] Start: 2005 Sex Assigned At Female [facility] Start: 11-19-2024 [facility] (finding[facility] Start: 11-29-2024 Sex Female (finding) [facility] Evaluation note 11-19-2024 Note Date & Type Note Facility 11-19-2024 Evaluation note Diagnosis Onset Date Resolution Headache, migraine acute November 19, 2024 10:26am Iron deficiency anemia acute [facility] 2024 10:26am Obesity (BMI 35.0-39.9 without comorbidity) acute November 19, 2024 10:26am Vitamin D deficiency acute [facility] 2024 10:26am Irregular menstrual cycle noneactive November 19, 2024 10:26am Influenza vaccination declined noneactive November 19, 2024 10:26am Bilateral knee pain noneactive November 19, 2024 10:26am [facility] Work Phone: Evaluation note Note Date & Type Note Facility Evaluation note Diagnosis Onset Date Intermittent headache acute Iron deficiency anemia acute Irregular menstrual cycle [facility] Vitamin D deficiency acute [facility] Work Phone: Reason for referral (narrative) Note Date & Type Note Facility Reason for referral (narrative) No reason for referral information available [facility] Work Phone: Summary Purpose Family History Relationship Condition Age at Onset Recorded Date/T fifi Not Specified Autoimmune disease Unknown father Malignant neoplasm Unknown Diabetes mellitus Unknown Hypertension Unknown uncle Malignant neoplasm Unknown grandmother Diabetes mellitus Unknown Advance Directives No Advanced Directives Records FoundNo Advanced Directives Records Found Chief Complaint and Reason for Visit Chief Complaint ACUTE MED REFILL Reason for Visit Intermittent headach e Iron deficiency anemia Irregular menstrual cycle Vitamin D deficiency Chief Complaint Admit Date MED FU November 19, 2024 10:2 6am Reason for Visit Admit Date Headache, migraine November 19, 2024 10:2 6am Iron deficiency anemia November 19, 2024 1 0:26am Obesity (BMI 35.0-39.9 without comorbidi ty) November 19, 2024 10:26am Vitamin D deficiency November 19, 2024 10: 26am Irregular menstrual cycle November 19 10:26am Influenza vaccination declined November 10:26am Bilateral knee pain November 19, 2024 10:2 6am Additional Source Comments INFORMATION SOURCE (unrecogn ized section and content) DATE CREATED AUTHOR 03/09/2018 [facility] DATE CREATED AUTHOR AUTHOR'S ORGANIZ ATION 12/02/2024 [facility] Care Teams (unrecognized sec tion and content) Team Status: Active Member Role Status Dates Dr. Sondra Burnham MD Family Provider Active Dr. Chen Mohan MD Primary Care Provider Active Team Status: Inactive Member Role Status Dates Dr. Chen Mohan MD [facility] Provider, [facility] Active KATIA Mendoza Attending Provider Active Team Status: Inactive Member Role Status Dates Dr. Chen Mohan MD Primary Care Provider Active KATIA Mendoza Attending Provider Active Team Status: Inactive Member Role Status Dates Dr. Chen Mohan MD Primary Care Provider Active Start: November 19, 2024 End: November 19, 2024 Dr. Chen Mohan MD Attending Provider Active Start: November 19, 2024 End: November 19, 2024 Dr. Chen Mohan MD Referring Provider Active Start: November 19, 2024 End: November 19, 2024 Team Status: Inactive Member Role Status Dates Dr. Chen Mohan MD Primary Care Provider Active Start: November 19, 2024 End: November 19, 2024 Dr. Chen Mohan MD Attending Provider Active Start: November 19, 2024 End: November 19, 2024 Goals (unrecognized section and content) Goals may be documented in a n alternate sectionGoals may be documented in an alternate section FOR RECORDS PERTAINING TO PATIENTS WHO ARE OR HAVE BEEN ENROLLED IN A CHEMICAL DEPENDENCY/SUBSTANCEABUSE PROGRAM, SOME INFORMATION MAY BE OMITTED. This clinical summary was aggregated from multiple sources. Caution should be exercised in using it in the provision of clinical care. This summary normalizes information from multiple sources, and as a consequence, information in this document may materially change the coding, format and clinical context of patient data. In addition, data may be omitted in some cases. CLINICAL DECISIONS SHOULD BE BASED ON THE PRIMARY CLINICAL RECORDS. [facility]. provides no warranty or guarantee of the accuracy or completeness of information in this document.
[2025-03-29 10:39] LABS: Hematocrit 43.2 % (37-47); Hemoglobin 13.5 g/dL (12.0-15.0); Immature Granulocytes Count 0.020 X10^3/uL (0.0-0.0); Mean Corp Hgb Conc 31.3 g/dL (32-36); Mean Corpuscular Volume 83.4 fL (81-99); Mean Platelet Vol. 11.5 fl (6.2-12.0); NRBC Flagged by Analyzer 0 % (0-5); Platelet Count 312 K/mm3 (150-450); RBC Distribution Width CV 13.8 % (11.6-14.6); RBC Distribution Width SD 42.1 fl (35.1-43.9); Red Blood Count 5.18 M/mm3 (4.2-5.4); White Blood Count 8.0 K/mm3 (4.4-11.0)
[2025-03-29 11:49] LABS: Vitamin D,25 Hydroxy 13.1 ng/mL (30-100)
[2025-03-29 13:13] LABS: D-Dimer Quantitative (DVT/PE) 0.27 FEU/ug/m (0.27-0.49)
== END | disposition home or self-care (01) ==
LOC: BIMLAB 08:12
PROVIDERS: PCP Internal Medicine; Referring Provider Physician Assistant; Visit Provider Physician Assistant
DX: R06.02 Shortness of breath (principal); E55.9 Vitamin D deficiency, unspecified; D50.9 Iron deficiency anemia, unspecified
CPT/HCPCS: 36415; 82306; 85025; 85379

== ENCOUNTER → 2025-09-06 | Outpatient (CLI) | payer OTHER, SELFPAY | END | disposition home or self-care (01) | LOC: PSN 08:39 | PROVIDERS: PCP Internal Medicine; Referring Provider Nurse Practitioner Family; Visit Provider Nurse Practitioner Family | DX: R06.02 Shortness of breath (principal) | CPT/HCPCS: 94060; 94726; 94729 ==